=== PATIENT | female | born 1985 | race African-American/Black ===

== ENCOUNTER 2021-09-24 21:46 | Emergency (ER) | payer MEDICAID ==
[~2021-09-24] VITALS: Ht 172.7 cm; Wt 100.0 kg
[2021-09-25 00:19] LABS: BASOPHILS % 0.6 % (0.0-2.0); EOSINOPHILS % 0.3 % (0.0-5.0); HEMATOCRIT. 35.2 % (36.0-48.0); HEMOGLOBIN. 12.5 g/dL (12.0-16.0); LYMPHOCYTES % 18.4 % (20.0-50.0); MEAN CORPUSCULAR HEMOGLOBIN 32.2 pg (28.0-32.0); MEAN CORPUSCULAR VOLUME 90.9 fL (81.0-99.0); MEAN PLATELET VOLUME 9.1 fl (7.4-10.4); MONOCYTES % 6.1 % (2.0-8.0); NEUTROPHILS % 74.6 % (40.0-76.0); PLATELET 297 x1000/uL (130-400); RED BLOOD CELL COUNT 3.87 mill/uL (4.2-5.4); RED CELL DISTRIBUTION WIDTH 13.5 % (11.6-14.6)
[2021-09-25 00:33] LABS: CHLORIDE 109 mEq/L (98-107)
[2021-09-25 00:59] LABS: HCG SCREEN NEGATIVE
[2021-09-25] MEDS ORDERED: ASPI-986 MT (04:38)
[2021-09-25 04:54] VITALS: BP 141/48
== END 2021-09-25 04:55 | disposition home or self-care (01) ==
LOC: ER 21:46
DX: R20.0 Anesthesia of skin (principal); I49.8 Other specified cardiac arrhythmias; Z79.82 Long term (current) use of aspirin
CPT/HCPCS: 36415; 71045; 80053; 84703; 85025; 93005; 99285

== ENCOUNTER 2022-01-01 05:45 | Emergency (ER) | payer MEDICAID ==
[~2022-01-01] VITALS: Ht 162.6 cm; Wt 111.7 kg
[~2022-01-01 05:45] MED LIST: ASPI-986 MT
[2022-01-01 06:04] VITALS: BP 143/59
[2022-01-01] MEDS ORDERED: FLUORESCEIN SODIUM 1MG/STRIP LEFTEYE ONE (07:30)
[2022-01-01] MEDS ORDERED: TETRACAINE 0.5% OPHTH DROPS 4ML LEFTEYE ONE (07:30)
[2022-01-01] MEDS ORDERED: CYCLOPENTOLATE HCL 1% OPHTH DROPS 2ML LEFTEYE ONE (08:45)
[2022-01-01] MEDS ORDERED: PRED5DRO22 LEFTEYE (08:46)
== END 2022-01-01 09:19 | disposition home or self-care (01) ==
LOC: ER 05:45
DX: H20.9 Unspecified iridocyclitis (principal); Z79.82 Long term (current) use of aspirin
CPT/HCPCS: 99283

== ENCOUNTER 2022-06-13 12:52 | Emergency (ER) | payer MEDICAID ==
[~2022-06-13] VITALS: Ht 175.3 cm; Wt 113.0 kg
[~2022-06-13 12:52] MED LIST changes: +PRED5DRO22 LEFTEYE
[2022-06-13] MEDS ORDERED: prenatal vitamins (13:03)
[2022-06-13 14:27] LABS: HEMATOCRIT 38.3 % (36.0-48.0); HEMOGLOBIN 13.5 g/dL (12.0-16.0); MEAN CORPUSCULAR HEMOGLOBIN 32.5 pg (28.0-32.0); MEAN CORPUSCULAR VOLUME 92.3 fL (81.0-99.0); PLATELET 301 x1000/uL (130-400); RED BLOOD CELL COUNT 4.15 mill/uL (4.2-5.4); RED CELL DISTRIBUTION WIDTH 13.2 % (11.6-14.6)
[2022-06-13 15:16] LABS: HCG SCREEN POSITIVE
[2022-06-13 17:14] LABS: CLARITY URINE CLEAR (CLEAR); COLOR URINE YELLOW (YELLOW); KETONES URINE 1+ (NEGATIVE); LEUKOCYTE ESTERASE URINE TRACE (NEGATIVE); NITRITE URINE NEGATIVE (NEGATIVE); OCCULT BLOOD URINE 2+ (NEGATIVE); PROTEIN URINE NEGATIVE (NEGATIVE); SPECIFIC GRAVITY URINE 1.021 (1.005-1.030)
[2022-06-13 18:34] VITALS: BP 119/52
== END 2022-06-13 18:37 | disposition home or self-care (01) ==
LOC: ER 13:04
DX: O46.91 Antepartum hemorrhage, unspecified, first trimester (principal); Z3A.08 8 weeks gestation of pregnancy
CPT/HCPCS: 36415; 76801; 81003; 81025; 84702; 84703; 85027; 86850; 86900; 99284

== ENCOUNTER 2022-07-02 12:15 | Emergency (ER) | payer MEDICAID ==
[~2022-07-02] VITALS: Ht 165.1 cm; Wt 117.0 kg
[~2022-07-02 12:15] MED LIST changes: +prenatal vitamins
[2022-07-02] MEDS ORDERED: SODIUM CHLORIDE 0.9% 1,000 ML IV ONE ×2 (13:15→14:45)
[2022-07-02 13:38] LABS: BASOPHILS % 0.2 % (0.0-2.0); EOSINOPHILS % 0.8 % (0.0-5.0); HEMOGLOBIN. 13.2 g/dL (12.0-16.0); LYMPHOCYTES % 38.9 % (20.0-50.0); MEAN CORPUSCULAR HEMOGLOBIN 32.3 pg (28.0-32.0); MEAN CORPUSCULAR VOLUME 92.5 fL (81.0-99.0); MEAN PLATELET VOLUME 8.4 fl (7.4-10.4); MONOCYTES % 6.4 % (2.0-8.0); NEUTROPHILS % 53.7 % (40.0-76.0); PLATELET 328 x1000/uL (130-400); RED BLOOD CELL COUNT 4.11 mill/uL (4.2-5.4); RED CELL DISTRIBUTION WIDTH 12.8 % (11.6-14.6)
[2022-07-02 13:40] LABS: CHLORIDE 104 mEq/L (98-107)
[2022-07-02 14:05] LABS: B-HCG QUANTITATIVE 8164 mIU/mL (<3)
[2022-07-02] MEDS ORDERED: DEXT 5%/LR + PITOCIN 20UNITS/L 1,000 ML IV SCH (14:45)
[2022-07-02] MEDS ORDERED: PROPOFOL 200MG/20ML VIAL IV ONE (15:13)
[2022-07-02] MEDS ORDERED: LIDOCAINE HCL 1% 20ML VIAL (Pyxis) INJ ONE (15:14)
[2022-07-02] MEDS ORDERED: FENTANYL CITRATE/PF 50MCG/ML 2ML VIAL ONE (15:14)
[2022-07-02] MEDS ORDERED: MIDAZOLAM HCL 2 MG/2 ML VIAL ONE (15:14)
[2022-07-02 15:40] VITALS: BP 140/90
[2022-07-02 15:42] LABS: BASOPHILS % 0.2 % (0.0-2.0); EOSINOPHILS % 0.5 % (0.0-5.0); HEMATOCRIT. 31.3 % (36.0-48.0); HEMOGLOBIN. 10.8 g/dL (12.0-16.0); LYMPHOCYTES % 28.9 % (20.0-50.0); MEAN CORPUSCULAR HEMOGLOBIN 31.9 pg (28.0-32.0); MEAN CORPUSCULAR VOLUME 92.5 fL (81.0-99.0); MEAN PLATELET VOLUME 8.4 fl (7.4-10.4); MONOCYTES % 5.6 % (2.0-8.0); NEUTROPHILS % 64.8 % (40.0-76.0); PLATELET 314 x1000/uL (130-400); RED BLOOD CELL COUNT 3.38 mill/uL (4.2-5.4); RED CELL DISTRIBUTION WIDTH 12.6 % (11.6-14.6)
[2022-07-02] MEDS ORDERED: SUCCINYLCHOLINE CHLORIDE 200MG/10ML IV ONE (15:55)
[2022-07-02] MEDS ORDERED: DEXAMETHASONE 4MG/ML 1ML VIAL ONE (15:56)
[2022-07-02] MEDS ORDERED: KETOROLAC 30MG/ML VIAL ONE (16:06)
[2022-07-02] MEDS ORDERED: ONDANSETRON HCL 4MG/2ML INJ ONE (16:06)
[2022-07-02] MEDS ORDERED: DEXT 5%/0.45% NACL KCL 20MEQ/L 1,000 ML IV SCH (16:30)
[2022-07-02] MEDS ORDERED: IBUPROFEN 600MG TABLET PO NR (16:45)
== END 2022-07-02 16:39 | disposition admitted as inpatient to this hospital (09) ==
LOC: ER 12:15 → CANBEDREQ 07-03 08:37
DX: O26.892 Other specified pregnancy related conditions, second trimester (principal); O03.4 Incomplete spontaneous abortion without complication; O03.83 Metabolic disorder following complete or unspecified spontaneous abortion; E87.6 Hypokalemia; Z3A.14 14 weeks gestation of pregnancy; E66.9 Obesity, unspecified; I11.0 Hypertensive heart disease with heart failure; I50.9 Heart failure, unspecified; Z68.41 Body mass index [BMI] 40.0-44.9, adult; Z20.822 Contact with and (suspected) exposure to COVID-19
CPT/HCPCS: 36415; 76801; 76817; 80053; 84702; 85025; 86850; 86900; 86901; 87426; 88305; 99284; A4217; C9803; J0330; J1100; J1885; J2250; J2405; J2704; J3010; J3490; J7030; Z7610